=== PATIENT | female | born 1960 | race Caucasian/White ===

== ENCOUNTER 2024-09-01 13:31 | Emergency (ER) | payer MEDICARE, OTHER, SELFPAY ==
[2024-09-01 13:41] VITALS: BP 157/72
[2024-09-01 14:22] LABS: Hematocrit 37.4 % (37.0-47.0); Hemoglobin 12.5 g/dL (12.0-16.0); Mean Corp Hgb Conc. 33.4 g/dL (33.0-37.0); Mean Corpuscular Hgb 29.8 pg (27.0-31.0); Mean Corpuscular Volume 89.3 fL (81.0-99.0); Mean Platelet Volume 9.5 fL (7.4-10.4); Platelet Count 177 10^3/uL (130-400); Red Blood Cell Count 4.19 10^6/uL (4.20-5.40); Red Cell Dist. Width 13.1 % (11.5-14.5)
[2024-09-01 14:34] LABS: ALT (SGPT) 15 U/L (0-35); AST (SGOT) 17 U/L (14-36); Alkaline Phosphatase 64 U/L (38-126); Blood Urea Nitrogen 28 mg/dl (7-17); Calcium 9.1 mg/dl (8.4-10.2); Carbon Dioxide 28 mmol/L (22-30); Chloride 108 mmol/L (98-107); Glucose 125 mg/dl (70-99); Potassium 4.7 mmol/L (3.5-5.1); Sodium 141 mmol/L (135-145); Total Bilirubin 0.6 mg/dl (0.2-1.3); Total Protein 6.8 g/dl (6.3-8.2); eGFR > 60.00
[2024-09-01 15:08] LABS: % Basophils 0.4 % (0-2); % Eosinophils 1.4 % (0-6); % Immature Granulocytes 0.3 % (0-0.5); % Lymphocytes 27.7 % (20.5-51.1); % Monocytes 5.7 % (1.7-9.3); % Neutrophils 64.5 % (42.2-75.2); Absolute Eosinophils 0.1 10^3/uL (0-0.7); Absolute Lymphocytes 1.9 10^3/uL (1.2-3.4); Absolute Monocytes 0.4 10^3/uL (0.1-0.6); Absolute Neutrophils 4.5 10^3/uL (1.4-6.5); Nucleated Red Blood Cells % 0 %
[2024-09-01 16:07] VITALS: BP 146/66
[2024-09-01 18:06] VITALS: BP 144/77
--- NOTE | 2024-09-01 18:21 | ED.GENMED ---
History of Present Illness
General
Chief Complaint: Musculo-Skeletal Complaint
Time Seen by Provider: 09/01/24 16:19
History of Present Illness
History of Present Illness:
64-year-old female presents the emergency department for evaluation of migratory polyarthralgias ongoing for the past 2 weeks. Has never had more than 1 joint at a time involved. Symptoms seem to migrate between the right knee, right wrist, left
wrist, and right elbow. States his symptoms will last for several hours to less than a day before resolving spontaneously. Has consistently had at least 1 joint involved for the past 2 weeks. No fevers or night sweats. No weight loss.
Review of Systems
Review of Systems
Allergies reviewed?: Yes
All Other Systems: ROS reviewed and negative except as documented in HPI and ROS
Phy Exam
Physical Exam
Physical Exam:
GEN: Well appearing, NAD, WDWN
HEENT: Oral mucosa moist, no scleral icterus
Cardiac: Regular rate
Lung: No respiratory distress, no tachypnea
MSK: No gross deformity or injuries. No obvious joint effusions to the large joints, range of motion of the right wrist and right knee is normal with no pain with passive range of motion.
Skin: Good color, no pallor or jaundice, no rashes
Neuro: AO x3, moves all extremities freely
Psych: Calm, cooperative
Course
Orders/Labs/Results
Orders:
Orders
09/01/24 14:12
CBC/With Diff [Complete Blood Count/With Diff] Urgent
CRP [C-Reactive Protein] Urgent
Comprehensive Metabolic Panel Urgent
Lyme Progressive Urgent
Comment: ADD ON
09/01/24 16:38
CR Knee- Right 4 Or More View* Urgent
Comment:
Reason For Exam: pain
CR Wrist - Right Min 3 Views Urgent
Comment:
Reason For Exam: pain
09/01/24 18:23
Add On- LAB Urgent
Tests Added?: Lyme progressive
Abnormal Lab Results
09/01/24
14:12
RBC 4.19 L 10^6/uL
(4.20-5.40)
Chloride 108 H mmol/L
(98-107)
BUN 28 H mg/dl
(7-17)
Glucose 125 H mg/dl
(70-99)
C-Reactive Protein 33.90 H mg/L
(0.0-10.00)
09/01/24 14:12
09/01/24 14:12
Vital Signs
Initial and Last Documented VS:
Initial Vital Signs
Temp Pulse Resp BP Pulse Ox
98.2 F 70 16 157/72 97
09/01/24 13:41 09/01/24 13:41 09/01/24 13:41 09/01/24 13:41 09/01/24 13:41
Last Documented Vital Signs
Temp Pulse Resp BP Pulse Ox
98.2 F 78 16 144/77 99
09/01/24 13:41 09/01/24 18:06 09/01/24 18:06 09/01/24 18:06 09/01/24 18:06
MDM/Problems Addressed
MDM/Problems Addressed:
Will send a Lyme titer however in the case of a migratory polyarthralgia the likelihood is for underlying inflammatory condition, we will place the patient on a course of steroids while awaiting Lyme titer and refer to primary care for follow-up
*Critical Care Note
Total Time (30-74mins, 75-104mins- exclusive of procedures): Not Applicable
ED Attending Note
-
Portions of this chart may have been created with voice recognition software.� Occasional wrong word or��sound alike� substitutions may have occurred due to the inherent limitations of voice recognition software.
Discharge Plan
Departure
Patient Disposition: Home (Routine Discharge)
Date of Disposition: 09/01/24
Time of Disposition: 18:22
Patient with high blood pressure during this ER visit?: No
Discharge Problem:
Migratory Polyarthralgia
Instructions: Muscle, joint, and bone pain - Discharge instructions
Prescriptions:
New
prednisone 20 mg tablet
40 mg PO DAILY 7 Days Qty: 14 0RF
Referrals:
NONE,* [Family Provider] -
Activity Restrictions/Additional Instructions:
Your Lyme disease test results will result within the next 3 to 4 days and we will contact you if positive. Take the steroids as prescribed. Follow-up with the below listed primary care clinic for ongoing management.
[facility]
[address]
[place] [address]
[phone]
Interventions
Interventions:
*Risk Screen - Suicide Last Done: 09/01/24 13:44
*General Assessment Last Done: 09/01/24 16:09
*Neglect/Abuse Screening Last Done: 09/01/24 13:44
*ED- Fall Risk Assessment Last Done: 09/01/24 16:09
*ED COVID-19 Vaccine History Last Done: 09/01/24 16:09
*Nursing Disposition Last Done: 09/01/24 18:36
ED-Musculoskeletal Assessment Last Done: 09/01/24 16:10
Discharge Date and Time
Discharge Date/Time: 09/01/24 18:36
Print Language: JAPANESE
== END 2024-09-01 18:36 | disposition home or self-care (01) ==
LOC: EMR 13:31
PROVIDERS: Emergency Medicine; EMERGENCY PHYSICIAN Emergency Medicine
DX: M25.561 Pain in right knee (principal); M25.532 Pain in left wrist; M25.531 Pain in right wrist; M25.521 Pain in right elbow; Z88.6 Allergy status to analgesic agent; Z88.1 Allergy status to other antibiotic agents; Z88.5 Allergy status to narcotic agent; Z88.0 Allergy status to penicillin
CPT/HCPCS: 99284; 73110; 73564; 80053; 85025; 86140; 86618

== ENCOUNTER → 2024-11-03 10:33 | Outpatient (REF) | payer MEDICARE, OTHER, SELFPAY | LOC: HWRAD 10:33 | PROVIDERS: ATTENDING PHYSICIAN Student in an Organized Health Care Education/Training Program | DX: M25.512 Pain in left shoulder (principal) | CPT/HCPCS: 73030 ==

== ENCOUNTER → 2025-01-20 09:13 | Outpatient (REF) | payer MEDICARE, OTHER, SELFPAY | LOC: HWRCS 09:13 | PROVIDERS: ATTENDING PHYSICIAN Internal Medicine Cardiovascular Disease | DX: R00.2 Palpitations (principal) | CPT/HCPCS: 93306 ==

== ENCOUNTER → 2025-03-17 10:00 | Outpatient (REF) | payer MEDICARE, OTHER, SELFPAY | LOC: RAD 10:00 | PROVIDERS: ATTENDING PHYSICIAN Student in an Organized Health Care Education/Training Program | DX: R05.1 Acute cough (principal) | CPT/HCPCS: 71046 ==

== ENCOUNTER 2025-03-23 12:27 | Emergency (ER) | payer MEDICARE, OTHER, SELFPAY ==
[2025-03-23 12:42] VITALS: BP 164/88
--- NOTE | 2025-03-23 13:03 | ED.GENMED ---
History of Present Illness
General
Chief Complaint: Flank Pain
Time Seen by Provider: 03/23/25 12:50
History of Present Illness
History of Present Illness:
65-year-old female presents to the emergency department for evaluation of persistent left flank/thoracic back pain for the past month. Saw her primary care physician and had a chest x-ray that was negative, was started on muscle relaxants which do
not seem to be helping. She is concerned with prior history of uterine CA as well as FmHx of RCC. Denies night sweats or constitutional symptoms, denies blood in the urine
Review of Systems
Review of Systems
Allergies reviewed?: Yes
All Other Systems: ROS reviewed and negative except as documented in HPI and ROS
Phy Exam
Physical Exam
Physical Exam:
GEN: Well appearing, NAD, WDWN
HEENT: Oral mucosa moist, no scleral icterus
Cardiac: Regular rate
Lung: No respiratory distress, no tachypnea
Abdomen: Soft, grossly nontender however obesity limits exam
MSK: No gross deformity or injuries. No reproducible thoracic spine or flank tenderness, no CVA tenderness
Skin: Good color, no pallor or jaundice, no rashes
Neuro: AO x3, moves all extremities freely
Psych: Calm, cooperative
Course
Orders/Labs/Results
Orders:
Orders
03/23/25 13:02
US Renal Only W/O Bladder Urgent
Comment:
Reason For Exam: L flank pain
03/23/25 13:13
Urinalysis Reflex To Culture Urgent
Date Specimen was Collected: 03/23/25
Time Specimen was Collected: 13:12
Urine Microscopic Reflex Cult Urgent
Abnormal Lab Results
03/23/25
13:13
Ur Occult Blood Reflex 1+ A
(Negative)
Urine RBC 3-6 A /HPF
(0-2)
Urine Bacteria (Reflex) Few A
(Negative)
Vital Signs
Initial and Last Documented VS:
Initial Vital Signs
Temp Pulse Resp BP Pulse Ox
98.4 F 67 16 164/88 99
03/23/25 12:42 03/23/25 12:42 03/23/25 12:42 03/23/25 12:42 03/23/25 12:42
Last Documented Vital Signs
Temp Pulse Resp BP Pulse Ox
98.4 F 67 20 164/88 99
03/23/25 12:42 03/23/25 12:42 03/23/25 14:21 03/23/25 12:42 03/23/25 13:04
MDM/Problems Addressed
MDM/Problems Addressed:
Ultrasound shows no evidence of structural abnormality on the kidney that would explain her symptoms. She has no anterior abdominal tenderness thus I have a low suspicion that there will be any benefit to CT imaging. Urinalysis is bland.
Recommend she discuss potential benefits of an MRI with her primary care physician. In the meantime we will treat with NSAIDs
*Pulse Oximetry
SaO2: 99
Oxygen Mode of Delivery: Room air
Patient hypoxic: no
*Critical Care Note
Total Time (30-74mins, 75-104mins- exclusive of procedures): Not Applicable
ED Attending Note
-
Portions of this chart may have been created with voice recognition software.� Occasional wrong word or��sound alike� substitutions may have occurred due to the inherent limitations of voice recognition software.
Discharge Plan
Departure
Patient Disposition: Home (Routine Discharge)
Date of Disposition: 03/23/25
Time of Disposition: 14:24
Patient with high blood pressure during this ER visit?: No
Discharge Problem:
Acute left flank pain
Instructions: Flank Pain (DC)
Prescriptions:
New
celecoxib [Celebrex] 200 mg capsule
200 mg PO BID Qty: 20 0RF
No Action
prednisone 20 mg tablet
40 mg PO DAILY 7 Days Qty: 14 0RF
Activity Restrictions/Additional Instructions:
Your ultrasound shows no signs of kidney disease. You do have a simple cyst on the right kidney, however this is benign and does not require further follow up studies
Follow up with your primary doctor to discuss the potential benefit of an MRI of your back to determine a cause of your pain
Interventions
Interventions:
*Risk Screen - Suicide Last Done: 03/23/25 12:42
*General Assessment Last Done: 03/23/25 14:21
*Neglect/Abuse Screening Last Done: 03/23/25 12:42
*ED COVID-19 Vaccine History Last Done: 03/23/25 14:01
*ED Influenza Vaccine History Last Done: 03/23/25 14:01
[facility] Fall Risk Assessment Tool Last Done: 03/23/25 14:21
*Nursing Disposition Last Done: 03/23/25 14:37
XR-Bnapyv-Bktuzumjbz Assessment Last Done: 03/23/25 14:21
ED-Female Genitourinary Assessment Last Done: 03/23/25 14:21
Discharge Date and Time
Print Language: [id number]
[2025-03-23 13:22] LABS: Urine Character Clear (Clear)
[2025-03-23 14:30] LABS: Urine Squamous Cell 26-30 /LPF (Few)
[2025-03-23 14:33] LABS: Urine White Cell 0-2 /HPF (0-5)
== END 2025-03-23 14:45 | disposition home or self-care (01) ==
LOC: EMR 12:27
PROVIDERS: Physician Assistant; EMERGENCY PHYSICIAN Emergency Medicine
DX: R10.A2 Flank pain, left side (principal); N28.1 Cyst of kidney, acquired; Z85.42 Personal history of malignant neoplasm of other parts of uterus; Z80.51 Family history of malignant neoplasm of kidney
CPT/HCPCS: 99284; 76775; 81003; 81015

== ENCOUNTER 2025-04-10 06:28 | Day surgery (SDC) | payer MEDICARE, OTHER, SELFPAY | END 2025-04-10 09:02 | disposition home or self-care (01) | LOC: GI 06:28 | PROVIDERS: ATTENDING PHYSICIAN Student in an Organized Health Care Education/Training Program | DX: K57.32 Diverticulitis of large intestine without perforation or abscess without bleeding (principal); K57.30 Diverticulosis of large intestine without perforation or abscess without bleeding; K56.699 Other intestinal obstruction unspecified as to partial versus complete obstruction; K64.4 Residual hemorrhoidal skin tags; Z86.0100 Personal history of colon polyps, unspecified | CPT/HCPCS: 45378 ==